=== PATIENT | female | born 1985 | race Caucasian/White ===

== ENCOUNTER 2016-11-27 10:35 | Emergency (ER) | payer OTHER ==
[~2016-11-27] VITALS: Ht 180.3 cm; Wt 113.4 kg
--- NOTE | ~2016-11-27 | CR94 ---
[facility] A Service of [facility] RADIOLOGY TEXT RESULTS PATIENT: GUILLERMO DUMONT LOCATION: [facility] : 83 UNIT #: [id number] AGE: [address]: Junaid Quigley MD SEX: F ORDER DR: [id number] [facility] [address] [place], [place] [address] [id number] E MR#: [id number] Acc #: [id number] NAME: GUILLERMO DUMONT : 1985 SEX: F STUDY DATE/TIME: 11/27/2016 11:44 UNIT: [facility] ROOM: STUDY DESCRIPTION: CR Elbow Min 3 Views Rt Attending Physician: Junaid Quigley M.D. Ordering Physician: Junaid Quigley M.D. Primary Care Physician: Generic Doctor Not In System MEDICAL IMAGING REPORT This report is preliminary unless electronic signature is present EXAM Right elbow, 3 views. COMPARISON None. INDICATIONS 30-year-old female with right anterior elbow pain and swelling after IV drug use 4 days ago. FINDINGS There is no elbow effusion. No acute fracture or osseous destruction. No subcutaneous gas or radiopaque foreign body. IMPRESSION Normal radiographs of the right elbow. Dictated by... Sahil Talbot M.D. THIS IS AN ELECTRONICALLY VERIFIED REPORT Sahil Talbot M.D. at 11/29/2016 7:41 PM ALEXIS/simin TD: 11/27/2016 15:15 JOB #: [id number] MEDICAL IMAGING REPORT Page 1 of 1 COPY
== END 2016-11-27 12:33 | disposition home or self-care (01) ==
LOC: CED 10:35
DX: L02.413 Cutaneous abscess of right upper limb (principal); F17.210 Nicotine dependence, cigarettes, uncomplicated; Z90.49 Acquired absence of other specified parts of digestive tract; Z88.2 Allergy status to sulfonamides; Z88.8 Allergy status to other drugs, medicaments and biological substances
CPT/HCPCS: 10060; 73080; 96372; 99283; J1885

== ENCOUNTER 2016-12-12 15:47 | Emergency (ER) | payer OTHER ==
[~2016-12-12] VITALS: Ht 180.3 cm; Wt 104.3 kg
--- NOTE | ~2016-12-12 | CR72 ---
[facility] A Service of [facility] RADIOLOGY TEXT RESULTS PATIENT: GUILLERMO DUMONT LOCATION: [facility] : 83 UNIT #: [id number] AGE: [address]: Jn Kyle MD SEX: F ORDER DR: [id number] [facility] [address] [place], [place] [address] [id number] E MR#: [id number] Acc #: [id number] NAME: GUILLERMO DUMONT : 1985 SEX: F STUDY DATE/TIME: 12/12/2016 16:43 UNIT: [facility] ROOM: STUDY DESCRIPTION: CR Chest Single View Portable Attending Physician: Jn Kyle M.D. Ordering Physician: Jn Kyle M.D. Primary Care Physician: No Primary Care Physician MEDICAL IMAGING REPORT This report is preliminary unless electronic signature is present EXAM Frontal chest 12/12/2016 INDICATIONS Asthma, wheezing, cough, to the point of vomiting for the past 2 weeks, tobacco abuse 10 years TECHNIQUE Frontal chest was performed. We have no comparisons. FINDINGS Cardiac silhouette is within normal limits. There is elongation of the cardiac silhouette and the aorta knob which is not well demonstrated probably secondary to patient rotation to the right. Vascularity unremarkable. There is pulmonary hyperinflation without evidence of pneumothorax. No effusion or dense consolidation identified. Faint interstitial prominence in the midlung zone on the right may reflect chronic interstitial change given similar features in the left lower lung zone, but acuity cannot be ascertained without prior studies for comparison. Mildly prominent pulmonary arteries could reflect an element of underlying pulmonary arterial hypertension. IMPRESSION 1. Pulmonary hyperinflation without evidence of dense consolidation, effusion or pneumothorax. 2. Mild prominence of the pulmonary arteries may reflect underlying pulmonary arterial hypertension. 3. Coarsened interstitial markings in both lung bases and midlung zones right greater than left. In the chronic setting these probably reflect sequela of interstitial scarring, but we have no comparisons for better assessment of acuity. Faint infiltrates felt to be less likely but not excluded. [facility] A Service of [facility] RADIOLOGY TEXT RESULTS PATIENT: GUILLERMO DUMONT LOCATION: [facility] : 83 UNIT #: [id number] AGE: [address]: Jn Kyle MD SEX: F ORDER DR: 4. Imaging followup to resolution after appropriate therapy recommended. Dictated by... Samson Mcdonnell M.D. THIS IS AN ELECTRONICALLY VERIFIED REPORT Samson Mcdonnell M.D. at 12/12/2016 11:16 PM Noam TD: 12/12/2016 20:07 JOB #: [id number] MEDICAL IMAGING REPORT Page 1 of 1 COPY
== END 2016-12-12 18:50 | disposition home or self-care (01) ==
LOC: CED 15:47
DX: J45.909 Unspecified asthma, uncomplicated (principal); J84.9 Interstitial pulmonary disease, unspecified; R51 Headache; Z90.49 Acquired absence of other specified parts of digestive tract; F17.200 Nicotine dependence, unspecified, uncomplicated; Z88.2 Allergy status to sulfonamides; Z88.8 Allergy status to other drugs, medicaments and biological substances
CPT/HCPCS: 71010; 94640; 99285